=== PATIENT | male | born 1980 ===

== ENCOUNTER 2018-10-22 09:59 | Day surgery (SDC) | payer BC ==
[2018-10-22] MEDS ORDERED: Lactated Ringer's 1,000 ML IV ONE ×2 (10:43→14:00)
--- NOTE | 2018-10-22 10:53 | CP.SDSHP ---
Same Day Surgery H & P - History Proposed Procedure: R achilles repair Pre-Op Diagnosis: R achilles rupture - Allergies Allergies: Allergies No Known Allergies Allergy (Verified 10/14/18 17:30) - Physical Exam Vital Signs: Vital Signs 10/22/18 10:42 Temperature 97.9 F Pulse Rate 87 Respiratory 18 Rate Blood Pressure 137/78 O2 Sat by Pulse 95 Oximetry - Date & Time Date: 10/22/18 Time: 10:53 Short Stay Discharge - Short Stay Discharge Admitting Diagnosis/Reason for Visit: S86.001A Disposition: HOME/ ROUTINE
--- NOTE | 2018-10-22 10:59 | CP.PCM.PN ---
Subjective - Date & Time of Evaluation Date of Evaluation: 10/22/18 Time of Evaluation: 10:53 - Subjective Subjective: Podiatry progress note - Dr. Akins 37M seen and evaluated in [facility] preoperatively for right achilles repair surgery. States that he was playing with his kid on a trampoline and heard a pop and felt like his ankle cracked. Once he tried to walk he could not bear weight on his ankle without extreme pain. States he has been nonweightbearing on the ankle since his visit with Dr. Akins. NPO confirmed. Denies n/v/f/c and has no other complaints. PMHx: denies PSHx: vasectomy All: NKDA Objective - Vital Signs/Intake and Output Vital Signs (last 24 hours): Temp Pulse Resp BP Pulse Ox 97.9 F 87 18 137/78 95 10/22/18 10:42 10/22/18 10:42 10/22/18 10:42 10/22/18 10:42 10/22/18 10:42 - Constitutional Appears: Non-toxic - Head Exam Head Exam: ATRAUMATIC - Extremities Exam Additional comments: RLE focused exam VASC: DP and PT pulses palpable; normal vascular exam; edema at the level of the achilles tendon DERM: no open lesions or wounds; ecchymosis present ORTHO: positive hawkins and correa test; pain on palpation of tendon NEURO: gross and protective sensation intact - Neurological Exam Neurological Exam: Alert, Awake, Oriented x3 - Psychiatric Exam Psychiatric exam: Normal Affect Assessment and Plan - Assessment and Plan (Free Text) Assessment: 37M with right achilles tendon rupture Plan: Pt was seen and examined in [facility] Pt NPO status was confirmed All pre-op testing and clearance in chart Pt has exhausted all conservative treatment at this time and is opting for surgical intervention Pt was explained procedure and post-operative course All pt's questions were answered to satisfaction No guarantees were made Pt understands all risks, benefits and complications of procedure Pt will follow-up with Dr. Akins within 1 week of surgery
[2018-10-22] MEDS ORDERED: Ropivacaine 0.5% 30ML IV ONE (11:12)
[2018-10-22] MEDS ORDERED: Lidocaine 1% Inj (20ml) IJ ONE (11:19)
[2018-10-22] MEDS ORDERED: ceFAZolin 2 GM in Sodium Chloride 0.9% 100 ML IVPB ONE (11:19)
[2018-10-22] MEDS ORDERED: Bupivacaine 0.5% Inj(30mL) IJ ONE (11:19)
[2018-10-22] MEDS ORDERED: Sodium Chloride 0.9% 1,000 ML IV SCH (11:30)
[2018-10-22 11:41] VITALS: BMI 37.8
[2018-10-22] MEDS ORDERED: Rocuronium 10 mg/ml (5 ml) ONE (11:43)
[2018-10-22] MEDS ORDERED: Midazolam 2 MG/2 ML VIAL ONE (11:43)
[2018-10-22] MEDS ORDERED: ePHEDrine 50 mg/ml Inj ONE (11:43)
[2018-10-22] MEDS ORDERED: Propofol 10 mg/ml Inj (20 ML) ONE (11:43)
[2018-10-22] MEDS ORDERED: Succinylcholine Chloride 20 mg/ml Syr (5 ml) IV ONE (11:44)
[2018-10-22] MEDS ORDERED: Lidocaine 4% (Laryng-O-Jet) Kit MM ONE (11:45)
[2018-10-22] MEDS ORDERED: Desflurane Inhalation Anesthetic Liq (240 ml) ONE (12:49)
[2018-10-22] MEDS ORDERED: Dexamethasone 4 mg/1 ml ONE (13:11)
--- NOTE | 2018-10-22 13:26 | CARD ---
APPROVED REPORT Date of service: 10/22/2018 EKG Measurement Heart [id number] IL [id number] <Conclusion> Normal sinus rhythm Inferior infarct, age undetermined Poor R wave progression in Precordial leads Abnormal ECG
--- NOTE | 2018-10-22 14:39 | PCM.SURG1 ---
Surgeon's Initial Post Op Note - Surgeon's Notes Surgeon: Dr. Akins, DPM Account Service Representative: Dr. Singh Cunningham, PGY2 Type of Anesthesia: General Endo Anesthesia Administered By: Dr. Celeste Pre-Operative Diagnosis: Ruptured achilles tendon, right Operative Findings: See dictation report. M- #2 fiberwire, 2-0 fiberwire, 4-0 vicryl, 4-0 prolene, Arthrex Arthroflex graft Post-Operative Diagnosis: Same Operation Performed: Primary repair of ruptured achilles tendon, right Specimen/Specimens Removed: None Estimated Blood Loss: EBL {In ML}: 5 Blood Products Given: N/A Drains Used: No Drains Post-Op Condition: Good Date of Surgery/Procedure: 10/22/18 Time of Surgery/Procedure: 14:40
[2018-10-22] MEDS ORDERED: Oxycodone/Acetaminophen 5/325 mg Tab PO PRN ×2 (14:41)
[2018-10-22] MEDS ORDERED: Lactated Ringer's 1,000 ML IV SCH (14:45)
[2018-10-22] MEDS: HYDROmorphone 0.5 mg/0.5 ml ISec IVP PRN ×4 (14:50→15:40)
[2018-10-22 18:59] VITALS: O2SAT 95
[2018-10-22 19:21] VITALS: BP 128/71; PULSE 87; RESP 18; TEMP 97.8
--- NOTE | 2018-10-25 08:30 | OP ---
PROCEDURE DATE: 10/22/2018 PREOPERATIVE DIAGNOSIS: Partial rupture of right Achilles tendon. POSTOPERATIVE DIAGNOSIS: Partial rupture of right Achilles tendon. PROCEDURE PERFORMED: Primary repair of partially ruptured right Achilles tendon. SURGEON: Blake Akins DPM [employer] TECHNICIAN: Singh Cunningham DPM, PGY-2 ANESTHESIOLOGIST: Olinda Celeste MD ANESTHESIA: General. INDICATIONS: The patient is a 37-year-old male with the above-mentioned diagnosis. The patient is being treated by Dr. Akins in his office on an outpatient basis, where he has exhausted conservative treatment options. At this time, the patient now seeks surgical intervention. All risks, benefits and possible complications of the proposed procedure have been explained to the patient at length. The patient verbalized his understanding and wished to proceed. All questions were answered. No guarantees were given nor implied. Consent was signed and NPO was confirmed prior to bringing the patient to the operating room. DESCRIPTION OF PROCEDURE: The patient was brought to the operating room and placed on the operating table in a prone position. A pneumatic thigh tourniquet at a pressure setting of 350 mmHg was utilized for the entirety of the procedure. Once anesthesia was achieved, the foot was prepped and draped in the usual sterile manner and the procedure was begun. Attention was then turned to the posterior aspect of the right leg, where a palpable dell could be felt overlying the Achilles tendon approximately 5 cm proximal to the Achilles tendon insertion site into the calcaneus. Utilizing a fresh #15 blade, a linear longitudinal incision was made over the palpable dell. Sharp and blunt dissection was utilized to carry the dissection down to the level of paratenon with care taken to retract all vital neurovascular structures and cauterization of all bleeders as necessary. Once the paratenon was identified, a linear longitudinal incision was made through the paratenon using a sharp #15 blade. Paratenon was then sharply debrided of the underlying Achilles tendon and flapped away from the tendon both medially and laterally. At this time, the Achilles tendon rupture was identified. It was noted that approximately 75% of the Achilles tendon diameter was ruptured. Using both sharp and blunt dissection, the Achilles tendon was freed from its surrounding soft tissue structures circumferentially in the area immediately surrounding the rupture site. Following this, a #2 FiberWire was utilized via a Krackow stitch maneuver to reapproximate the distal and proximal ends of the Achilles tendon in an anatomically appropriate position. Following this, the #2 FiberWire was passed from the proximal end of the Achilles tendon rupture to the distal end of the Achilles tendon rupture and two [id number] sutures to further reinforce the reapproximation of the tendon. Next, an Arthrex ArthroFLEX graft was circumferentially wrapped around the ruptured portion of the Achilles tendon and held in place using 2-0 FiberWire suture. The graft was then sewn down to itself using 2-0 Vicryl suture. Following this, the paratenon was reapproximated as closely as could be achieved using 4-0 Vicryl suture. The surgical site was then flushed with copious amounts of normal sterile saline. The deep subcutaneous layer was reapproximated using 4-0 Vicryl suture and the skin was reapproximated and well coapted using 4-0 Prolene suture, and the procedure was completed. The surgical site was then dressed with Betadine-soaked Adaptic, 4 x 4 gauze, Kerlix, and a posterior splint was applied with Webril padding and Luis with care taken to ensure that the ankle joint was slightly plantar flexed to allow for decreased tension on the Achilles tendon. POSTOPERATIVE CONDITION: The patient tolerated the procedure and the anesthesia well without any apparent complications or complaints. The patient was escorted from the operating room to the recovery room with vital signs stable and neurovascular structures intact. The patient will follow up with Dr. Akins in his office on an outpatient basis following discharge from the hospital. Singh Cunningham DPM Blake Akins DPM
== END 2018-10-22 18:25 | disposition home or self-care (01) ==
LOC: H.OPSURG 09:59
PROVIDERS: ATTEND Podiatrist Foot & Ankle Surgery
DX: S86.011A Strain of right Achilles tendon, initial encounter (principal); X58.XXXA Exposure to other specified factors, initial encounter; E66.01 Morbid (severe) obesity due to excess calories; I10 Essential (primary) hypertension; Y93.44 Activity, trampolining
CPT/HCPCS: 27650; 93005; 97162; 97530; G8978; G8979; J0690; J1100; J1170; J2001; J2250; J2405; J2704; J3010; J7030; J7120; Q4125